=== PATIENT | female | born 1990 | race Caucasian/White ===

== ENCOUNTER 2017-02-23 19:58 | Emergency (ER) | payer OTHER ==
[2017-02-23 20:05] VITALS: BP 120/75; BMI 21.2
[2017-02-23] MEDS ORDERED: ZOFRAN SYRUP 4 MG UDC PO ONE (20:25)
--- NOTE | 2017-02-23 20:26 | DR.GENAD ---
HPI - Complaint/Symptoms Chief Complaint Doctors Comments: Patient presents with complaint of nausea. She states that she might be . LMP 01/17/17. She has an appointment to see OB on next week. Chief Complaint:: PT STATES THAT SHE IS HAVING A LOT OF STOMACH PAIN AND BACK PAIN. PT STATES SHE HAD A POSITIVE PREG TEST AT HOME. HAS NOT SEEN OBGYN YET. - Source History Provided: Patient - Mode of Arrival Mode of Arrival: Ambulatory - Timing Onset of Chief Complaint: 02/23/17 PMH - PMH Past Medical History: Yes Past Medical History Comment: GALLSTONES, IBS Past Surgical History: Yes Surgical History: - Family History History of Family Medical Conditions: Yes Family Medical History: Diabetes Mellitus, Cancer, [place], Coronary Artery Disease, Hypertension - infectious screening Have you traveled outside the country in the last 6 months?: No ROS - Review of Systems Constitutional: negative: Diaphoresis Eyes: No Symptoms Reported ENTM: No Symptoms Reported Respiratoy: No Symptoms Reported Cardiovascular: No Symptoms Reported Gastrointestinal/Abdominal: No Symptoms Reported Genitourinary: No Symptoms Reported Neurological: No Symptoms Reported Musculoskeletal: No Symptoms Reported Integumentary: No Symptoms Reported Hematologic/Lymphatic: No Symptoms Reported Endocrine: No Symptoms Reported Psychiatric: No Symptoms Reported All Other Systems: Reviewed and Negative PE - Vital Signs Vitals: Temperature 97.6 F Pulse Rate 77 Respiratory Rate 18 Blood Pressure 120/75 O2 Sat by Pulse Oximetry 100 - General Limitations: No Limitations General Appearance: Alert, In No Apparent Distress - Head Head Exam: Normal Inspection, Atraumatic - Eyes Eye exam: Normal Appearance, PERRL, EOMI - ENT ENT Exam: Normal Exam External Ear Exam: Normal External Inspection TM/Canal Exam: Bilateral Normal Nose Exam: Normal Nose Exam Mouth Exam: Normal Inspection Throat Exam: Normal Inspection - Neck Neck Exam: Normal Inspection, Full ROM - Chest Chest Inspection: Normal Inspection - Respiratory Respiratory Exam: Normal Lung Sounds Bilat Respiratory Exam: Bilateral Clear to Auscultation - Cardiovascular Cardiovascular Exam: Regular Rate - Abdominal Exam Abdominal Exam: Normal Inspection Abdominal Tenderness: negative: RUQ, RLQ, LUQ, LLQ, Epigastrium, Suprapubic, Diffuse, Mild, Moderate, Severe, Other - Extremities Extremities Exam: Normal Inspection - Back Back Exam: Normal Inspection - Neurologic Neurological Exam: Alert, Oriented X3, CN II-XII Intact - Psychiatric Psychiatric Exam: Normal Affect - Skin Skin Exam: Warm, Dry, Intact ROR - Labs Reviewed Laboratory Results Reviewed?: Yes (HCG >10, positive) Laboratory: HCG, Qual Positive >10 mIU/mL 02/23/17 20:28 Specimen Type Clean catch urine 02/23/17 20:23 Urine Color Yellow (YELLOW) 02/23/17 20:23 Urine Appearance Clear (CLEAR) 02/23/17 20: Urine pH 6.5 (5.0 - 8.0) 02/23/17 20: Ur Specific [place] 1.020 (1.000-1.030) 02/23/17 20: Urine Protein 1+ (NEGATIVE) 02/23/17 20: Urine Glucose (UA) Negative (NEGATIVE) 02/23/17 20: Urine Ketones Negative (NEGATIVE) 02/23/17 20: Urine Occult Blood Negative (NEGATIVE) 02/23/17 20: Urine Nitrite Negative (NEGATIVE) 02/23/17 20: Urine Bilirubin Negative (NEGATIVE) 02/23/17 20:23 Urine Urobilinogen Normal (NORMAL) 02/23/17 20:23 Ur Leukocyte Esterase 1+ (NEGATIVE) 02/23/17 20:23 Urine RBC 1-2 /HPF (NEGATIVE) 02/23/17 20:23 Urine WBC 3-4 /HPF (NEGATIVE) 02/23/17 20:23 Ur Squamous Epith Cells Few /HPF (NEGATIVE) 02/23/17 20:23 Urine Bacteria Trace /HPF (NEGATIVE) 02/23/17 20:23 Urine Mucus Moderate /HPF (NEGATIVE) 02/23/17 20:23 Ur Culture Indicated? No/not indicated 02/23/17 20:23 - Diagnosis Discharge Problem: Qualifiers: Weeks of gestation: less than 8 weeks Qualified Code(s): Z3A.01 - Less than 8 weeks gestation of - Discharge Plan Condition: Stable - Follow ups/Referrals Follow ups/Referrals: CAROLYN WASHINGTON [Primary Care Provider] - 3 days - Instructions
[2017-02-23] MEDS ORDERED: ZOFRAN SYRUP 4 MG UDC ONE (20:27)
[2017-02-23 20:36] LABS: BILIRUBIN,URINE NEGATIVE (NEGATIVE); BLOOD/HEMOGLOBIN,URINE NEGATIVE (NEGATIVE); GLUCOSE, URINE NEGATIVE (NEGATIVE); KETONES,URINE NEGATIVE (NEGATIVE); LEUKOCYTE ESTERASE ,URINE 1+ (NEGATIVE); NITRITES,URINE NEGATIVE (NEGATIVE); PH,URINE 6.5 (5.0 - 8.0); PROTEIN,URINE 1+ (NEGATIVE); UROBILINOGEN,URINE NORMAL (NORMAL)
[2017-02-23 20:43] LABS: APPEARANCE,URINE CLEAR (CLEAR); BACTERIA,URINE TRACE /HPF (NEGATIVE); COLOR,URINE YELLOW (YELLOW); SQUAMOUS EPITHELIAL CELL,UR FEW /HPF (NEGATIVE)
[2017-02-23 20:43] LABS: SERUM PREGNANCY TEST, QUAL POSITIVE >10 mIU/mL
[2017-02-23 20:45] LABS: MUCUS,URINE MODERATE /HPF (NEGATIVE)
== END 2017-02-23 21:20 | disposition home or self-care (01) ==
LOC: ER 20:11
DX: R10.84 Generalized abdominal pain (principal); Z3A.01 Less than 8 weeks gestation of pregnancy
CPT/HCPCS: 36415; 81001; 84703; 99282; Q0162

== ENCOUNTER 2017-05-30 22:56 | Emergency (ER) | payer OTHER ==
[2017-05-30 23:01] VITALS: BP 111/58; BMI 21.2
--- NOTE | 2017-05-30 23:24 | DR.GENAD ---
HPI - PCP Primary Care Physician: CAROLYN WASHINGTON - HPI Comment HPI Comment: DENIES URI SYMTOMS. NO FEVER. THIS IS FOR PATIENT. SLIGHT LOWER BACK PAIN. NO DYSURIA. - Complaint/Symptoms Chief Complaint Doctors Comments: LOWER ABDOMINAL CRAMPING SINCE THIS AM. NO VAGINAL BLEEDING. Chief Complaint:: BELLY CRAMPING THAT BEGAN THIS AM; BACK PAIN; PT IS DUE OCTOBER 24, 2017 Self Treatment fo Chief Complaint: TYLENOL - Nurses notes reviewed Nurses Notes Review: Yes - Source History Provided: Patient - Mode of Arrival Mode of Arrival: Ambulatory - Timing Onset of Chief Complaint: 05/30/17 Came on: Suddenly - Duration Duration: Constant Duration: Hours - Severity Severity: Moderate PMH - PMH Past Medical History: Yes Past Medical History Comment: IBS Past Surgical History: Yes Surgical History: Past Surgical History Comment: X 2 - Family History History of Family Medical Conditions: No Family Medical History: Diabetes Mellitus, Cancer, [place], Coronary Artery Disease, Hypertension - Social History Alcohol Use: None Do you use any recreational Drugs:: No Lives With: Family Lives Where: Home - infectious screening In the last 2 months have you had wt loss of >10#?: NO Have you had fever, night sweats or hemotysis?: No Have you traveled outside the country in the last 6 months?: No Isolation: Standard ROS - Review of Systems Constitutional: No Symptoms Reported Eyes: No Symptoms Reported ENTM: No Symptoms Reported Respiratoy: No Symptoms Reported Cardiovascular: No Symptoms Reported Gastrointestinal/Abdominal: Abdominal Pain, Nausea. negative: Diarrhea, Vomiting Genitourinary: No Symptoms Reported. negative: Dysuria, Hematuria Neurological: No Symptoms Reported Musculoskeletal: Back Pain, Back Integumentary: No Symptoms Reported Hematologic/Lymphatic: No Symptoms Reported Endocrine: No Symptoms Reported All Other Systems: Reviewed and Negative PE - Vital Signs Vitals: Temperature 99.5 F Pulse Rate 96 Respiratory Rate 20 Blood Pressure 111/58 O2 Sat by Pulse Oximetry 100 - General Limitations: No Limitations General Appearance: In No Apparent Distress - Head Head Exam: Normal Inspection - Eyes Eye exam: Normal Appearance - ENT ENT Exam: Normal External Ear Exam External Ear Exam: Normal External Inspection TM/Canal Exam: Bilateral Normal Nose Exam: Normal Nose Exam Mouth Exam: Normal Inspection Throat Exam: Normal Inspection - Neck Neck Exam: Trachea Midline - Chest Chest Inspection: Symmetric Chest Wall Rise - Respiratory Respiratory Exam: Normal Lung Sounds Bilat Respiratory Exam: Bilateral Clear to Auscultation - Cardiovascular Cardiovascular Exam: Regular Rate, Normal Rhythm, Normal Heart Sounds - Abdominal Exam Abdominal Exam: Normal Bowel Sounds, Soft, Tenderness Abdominal Tenderness: RLQ, LLQ, Epigastrium - Extremities Extremities Exam: Normal Inspection - Back Back Exam: Normal Inspection - Neurologic Neurological Exam: Alert, Oriented X3 - Psychiatric Psychiatric Exam: Normal Affect, Normal Mood - Skin Skin Exam: Normal Color MDM - Additional Information Additional Information Obtained From: Family - Differential Diagnosis Differential Diagnosis: ABDOMINAL PAIN DURING , UTI, THREATENED MISCARRIAGE. Course - Treatment Treatment: SEE ORDERS. - Consultation Consultation Comments: DISCUSS PATIENT WITH DR. WASHINGTON, OB. SHE WILL FOLLOW PT UP AND FOR HER TO TAKE MACROBID AND TYLENOL FOR PAIN. - Education/Counseling Education/Counseling: Patient, Family, Education Educated On: Diagnosis, Needs for Follow Up ROR - Labs Reviewed Laboratory Results Reviewed?: Yes Result Diagrams: 05/30/17 23:45 Laboratory: WBC 9.0 X10^3/uL (3.6-10.0) 05/30/17 23:45 RBC 4.11 X10^6/uL (3.5-5.4) 05/30/17 23:45 Hgb 12.6 g/dL (12.0-16.0) 05/30/17 23:45 Hct 36.4 % (36.0-47.0) 05/30/17 23:45 MCV 88.4 fL (80.0-100.0) 05/30/17 23:45 MCH 30.7 pg (27.0-34.0) 05/30/17 23:45 MCHC 34.7 g/dL (33.0-35.0) 05/30/17 23:45 RDW 16.2 % (11.6-16.5) 05/30/17 23:45 Plt Count 160 X10^3/uL (150.0-450.0) 05/30/17 23:45 MPV 9.4 fL (7.4-11.0) 05/30/17 23:45 Neut % 76.1 % (42.0-75.0) H 05/30/17 23:45 Lymph % 18.2 % (21.0-51.0) L 05/30/17 23:45 [place] % 4.2 % (0.0-13.0) 05/30/17 23:45 Eos % 1.2 % (0.9-2.9) 05/30/17 23:45 Baso % 0.3 % (0.2-1.0) 05/30/17 23:45 Neut # 6.9 x10^3/uL (2.2-4.8) H 05/30/17 23:45 Lymph # 1.6 X10^3/uL (1.3-2.9) 05/30/17 23:45 [place] # 0.4 x10^3/uL (0.3-0.8) 05/30/17 23:45 Eos # 0.1 x10^3/uL (0.0-0.2) 05/30/17 23:45 Baso # 0.0 X10^3/uL (0.0-0.1) 05/30/17 23:45 Absolute Nucleated RBC 0.0 /100WBC 05/30/17 23:45 HCG, Quant 28085 mIU/mL (0-6) H 05/30/17 23:45 Specimen Type Clean catch urine 05/30/17 23:14 Urine Color Yellow (YELLOW) 05/30/17 23:14 Urine Appearance Clear (CLEAR) 05/30/17 23:14 Urine pH 6.5 (5.0 - 8.0) 05/30/17 23:14 Ur Specific [place] 1.020 (1.000-1.030) 05/30/17 23:14 Urine Protein Negative (NEGATIVE) 05/30/17 23:14 Urine Glucose (UA) Negative (NEGATIVE) 05/30/17 23:14 Urine Ketones Negative (NEGATIVE) 05/30/17 23:14 Urine Occult Blood Negative (NEGATIVE) 05/30/17 23:14 Urine Nitrite Negative (NEGATIVE) 05/30/17 23:14 Urine Bilirubin Negative (NEGATIVE) 05/30/17 23:14 Urine Urobilinogen Normal (NORMAL) 05/30/17 23:14 Ur Leukocyte Esterase 1+ (NEGATIVE) 05/30/17 23:14 Urine RBC 2-6 /HPF (NEGATIVE) 05/30/17 23:14 Urine WBC 2-6 /HPF (NEGATIVE) 05/30/17 23:14 Ur Squamous Epith Cells Numerous /HPF (NEGATIVE) 05/30/17 23:14 Urine Bacteria Trace /HPF (NEGATIVE) 05/30/17 23:14 Ur Culture Indicated? No/not indicated 05/30/17 23:14 Influenza Type A (PCR) Negative (NEGATIVE) 05/31/17 00:54 Influenza Type B (PCR) Negative (NEGATIVE) 05/31/17 00:54 - XRAY XRAY Interpreted by: Radiologist XRAY Findings: REPORT DISCUSS WITH PATIENT. - Diagnosis Discharge Problem: Abdominal pain affecting - Discharge Plan Condition: Stable Prescriptions: Nitrofurantoin Macro [Macrobid Cap 100 mg Ext Rel] 100 mg PO BID #14 cap - Follow ups/Referrals Follow ups/Referrals: CAROLYN WASHINGTON [Primary Care Provider] - 06/01/17 - Instructions Instructions: Abdominal Pain During , [id number], Pelvic Rest Additional Instructions: RETURN TO ED IF WORSE. TYLENOL 650MG PO Q6H PRN FOR PAIN.
[2017-05-30 23:30] LABS: BILIRUBIN,URINE NEGATIVE (NEGATIVE); BLOOD/HEMOGLOBIN,URINE NEGATIVE (NEGATIVE); GLUCOSE, URINE NEGATIVE (NEGATIVE); KETONES,URINE NEGATIVE (NEGATIVE); LEUKOCYTE ESTERASE ,URINE 1+ (NEGATIVE); NITRITES,URINE NEGATIVE (NEGATIVE); PH,URINE 6.5 (5.0 - 8.0); PROTEIN,URINE NEGATIVE (NEGATIVE); UROBILINOGEN,URINE NORMAL (NORMAL)
[2017-05-30 23:39] LABS: APPEARANCE,URINE CLEAR (CLEAR); BACTERIA,URINE TRACE /HPF (NEGATIVE); COLOR,URINE YELLOW (YELLOW); SQUAMOUS EPITHELIAL CELL,UR NUMEROUS /HPF (NEGATIVE)
[2017-05-30 23:52] LABS: BASOPHILS % (AUTO) 0.3 % (0.2-1.0); EOSINOPHILS # (AUTO) 0.1 x10^3/uL (0.0-0.2); EOSINOPHILS % (AUTO) 1.2 % (0.9-2.9); HEMATOCRIT 36.4 % (36.0-47.0); HEMOGLOBIN 12.6 g/dL (12.0-16.0); LYMPHOCYTES # (AUTO) 1.6 X10^3/uL (1.3-2.9); LYMPHOCYTES % (AUTO) 18.2 % (21.0-51.0); MEAN CORPUSCULAR HEMOGLOBIN 30.7 pg (27.0-34.0); MEAN CORPUSCULAR HGB CONC 34.7 g/dL (33.0-35.0); MEAN CORPUSCULAR VOLUME 88.4 fL (80.0-100.0); MEAN PLATELET VOLUME 9.4 fL (7.4-11.0); MONOCYTES # (AUTO) 0.4 x10^3/uL (0.3-0.8); MONOCYTES % (AUTO) 4.2 % (0.0-13.0); NEUTROPHILS # (AUTO) 6.9 x10^3/uL (2.2-4.8); NEUTROPHILS % (AUTO) 76.1 % (42.0-75.0); PLATELET COUNT 160 X10^3/uL (150.0-450.0); RED BLOOD COUNT 4.11 X10^6/uL (3.5-5.4); RED CELL DISTRIBUTION WIDTH 16.2 % (11.6-16.5)
--- NOTE | 2017-05-31 01:14 | US ---
OB ultrasound greater than 14 weeks Indication: Abdominal pain and cramping Comparison: None available Technique: Multiple grayscale and color flow Doppler images of the pelvis were obtained with focused evaluation of the fetus. Findings: A viable single intrauterine is identified with heart tones of 148 beats per minute. A transverse presentation is observed with a posterior and fundal placenta. No retroplacental or subc hronic hemorrhage. Grossly normal amniotic fluid is noted. No morphologic abnormality identified within the four-chamber heart, three-vessel cord, bladder or sp ine. Value Estimated Gestational Age BPD 4.37 cm 19 weeks, 2 days HC 16.48 cm 19 weeks, 1 day AC 12.58 cm 18 weeks, 1 day FL 2.89 cm 18 weeks, 6 days Estimated gestational age is 18 weeks, 6 days. Estimated weight is 248 g. IMPRESSION: Viable single intrauterine with an estimated gestational age of 18 weeks, 6 days. No retrop lacental or subchronic hemorrhage. Reported By:
[2017-05-31] MEDS ORDERED: TYLENOL 500 MG TAB EXTRA STRENGTH PO ONE ×2 (01:36→01:37)
[2017-05-31] MEDS ORDERED: MACROBID CAP 100 MG EXT REL PO ONE ×2 (01:38→02:34)
== END 2017-05-31 02:42 | disposition home or self-care (01) ==
LOC: ER 22:56
DX: R10.84 Generalized abdominal pain (principal); Z3A.18 18 weeks gestation of pregnancy
CPT/HCPCS: 36415; 76815; 81001; 84702; 85025; 87502; 99284; 99285

== ENCOUNTER 2017-08-08 17:30 | Emergency (ER) | payer OTHER ==
[2017-08-08 17:39] VITALS: BP 128/75; BMI 22.0
[2017-08-08 18:13] LABS: BILIRUBIN,URINE NEGATIVE (NEGATIVE); BLOOD/HEMOGLOBIN,URINE NEGATIVE (NEGATIVE); GLUCOSE, URINE NEGATIVE (NEGATIVE); KETONES,URINE NEGATIVE (NEGATIVE); LEUKOCYTE ESTERASE ,URINE 1+ (NEGATIVE); NITRITES,URINE NEGATIVE (NEGATIVE); PROTEIN,URINE NEGATIVE (NEGATIVE); UROBILINOGEN,URINE NORMAL (NORMAL)
[2017-08-08 18:18] LABS: APPEARANCE,URINE CLEAR (CLEAR); COLOR,URINE YELLOW (YELLOW)
[2017-08-08 18:26] LABS: BACTERIA,URINE TRACE /HPF (NEGATIVE); RBC,URINE NONE SEEN /HPF (NONE SEEN); SQUAMOUS EPITHELIAL CELL,UR MODERATE /HPF (NEGATIVE)
[2017-08-08 18:27] LABS: AMORPHOUS SEDIMENT,UR TRACE /HPF (NEGATIVE)
== END 2017-08-08 18:45 | disposition home or self-care (01) ==
LOC: ER 17:42
DX: R10.84 Generalized abdominal pain (principal); Z3A.29 29 weeks gestation of pregnancy
CPT/HCPCS: 81001; 99283; 99284